=== PATIENT | male | born 1990 | race Caucasian/White ===

== ENCOUNTER 2017-03-04 17:13 | Emergency (ER) | payer BC, OTHER ==
[2017-03-04] MEDS ORDERED: NS 1,000 ML IV ONE (18:54)
--- NOTE | 2017-03-04 18:58 | EDPHY ---
H & P Smoking Status: Current some day smoker Time Seen by Provider: 03/04/17 18:29 HPI/ROS: CHIEF COMPLAINT: Syncope, head injury HISTORY OF PRESENT ILLNESS: 27-year-old male presents to the emergency department by private vehicle after having a syncopal episode yesterday. The patient states that he has had cold symptoms including diffuse myalgias, cough, nausea vomiting over last 1 week. He has had coworkers that of also tested positive for influenza. He does not get flu shots. He states yesterday he was in the shower and was feeling lightheaded and dizzy and had a syncopal episode. Woke up on the ground. He does have a history of a previous traumatic brain injury. He states today his headache was getting worse any feels nauseous and "out of it ". Denies neck or back pain. Denies chest pain or difficulty breathing. Denies abdominal pain. Denies injury to upper or lower extremities. REVIEW OF SYSTEMS: Constitutional: Subjective fevers, chills Eyes: No double or blurry vision. ENT: No sore throat. Respiratory: Cough. No shortness of breath. Cardiac: No chest pain. Gastrointestinal: No abdominal pain, vomiting or diarrhea. Genitourinary: No dysuria. Musculoskeletal: No neck or back pain. Skin: No rashes. Neurological: headache. (Eladia Alexander) Past Medical/Surgical History: Traumatic brain injury (Eladia Alexander) Social History: Single, works in marijuana dispensary (Eladia Alexander) Physical Exam: General Appearance: Alert, no distress. Mentating normally and answering questions appropriately. No physical signs of trauma to his head. Eyes: Pupils equal and round. Extraocular motions are all intact. ENT: Mouth: Mucous membranes moist. No hemotympanum. No dental injury or malocclusion. No posterior pharyngeal injection noted. Respiratory: No wheezing, rhonchi, or rales, lungs are clear to auscultation. Cardiovascular: Regular rate and rhythm. Gastrointestinal: Abdomen is soft and nontender, no masses, no rebound or guarding, bowel sounds normal. Neurological: Alert and oriented x 3, cranial nerves II through XII grossly intact Skin: Warm and dry, no rashes. Musculoskeletal: Nontender to palpate along the cervical, thoracic or lumbar spine. Neck is supple. Extremities: Full range of motion and no peripheral edema. Psychiatric: Patient is oriented X 3, there is no agitation. (Eladia Alexander) Constitutional: Initial Vital Signs Temperature (C) 37.2 C 03/04/17 17:31 Heart Rate 100 03/04/17 17:31 Respiratory Rate 17 03/04/17 17:31 Blood Pressure 112/70 03/04/17 17:31 O2 Sat (%) 97 03/04/17 17:31 O2 Delivery Mode Room Air Allergies/Adverse Reactions: amoxicillin Allergy (Verified 03/04/17 17:29) Penicillins Allergy (Verified 03/04/17 17:29) Home Medications: Medication Instructions Recorded Elsa Allergy 03/04/17 Medical Decision Making - Diagnostics Imaging: Discussed imaging studies w/ banquet server on call Radiologist - Diagnostics EKG Interpretation: 12-lead EKG interpreted by me; official reading is in trace master. My interpretation is sinus rhythm, inferior Q-waves noted, normal intervals. (Antony Chavis) Imaging Results: Imaging Impressions Head CT 03/04/17 18:54 Impression: 1. Negative. No acute intracranial hemorrhage or fracture. 2. Maxillary and ethmoid sinus disease. Findings discussed with Emergency Department physician, Eladia Alexander PA-C on March 04, 2017 at 1928 hours. ED Course/Re-evaluation: 27-year-old male presents to the emergency department with flu-like symptoms over last 1 week. Patient has been around coworkers with positive influenza. The patient does not receive flu shots. The patient however has been sick for over 1 week. I discussed the rationale for not performing influenza testing or treatment. The patient is outside of the free 8 hr window. He does not have a history of asthma and he is immunocompetent. Patient does have a history of traumatic brain injury and has history of positive loss of consciousness after head injury yesterday. I discussed the pros and cons of radiation exposure associated with CT scan of the brain and the patient requests CT scan. CT imaging was normal. Laboratory studies were unremarkable. EKG reveals normal sinus rhythm. (Eladia Alexander) Differential Diagnosis: Head injury including but not limited to concussion, skull fracture, intraparenchymal contusion, subarachnoid, subdural and epidural hematoma. Cough including but not limited to influenza, viral upper respiratory infection , bronchitis, pneumonia (Eladia Alexander) - Data Points Laboratory Results: Laboratory Results 03/04/17 19:00 03/04/17 19:00 03/04/17 03/04/17 19:00 19:00 WBC 10.87 10^3/uL H 10^3/uL (3.80-9.50) RBC 5.93 10^6/uL 10^6/uL (4.40-6.38) Hgb 17.2 g/dL g/dL (13.7-17.5) Hct 49.7 % % (40.0-51.0) MCV 83.8 fL fL (81.5-99.8) MCH 29.0 pg pg (27.9-34.1) MCHC 34.6 g/dL g/dL (32.4-36.7) RDW 12.7 % % (11.5-15.2) Plt Count 226 10^3/uL 10^3/uL (150-400) MPV 8.8 fL fL (8.7-11.7) Neut % (Auto) 70.7 % % (39.3-74.2) Lymph % (Auto) 17.1 % % (15.0-45.0) Glades % (Auto) 10.8 % % (4.5-13.0) Eos % (Auto) 0.5 % L % (0.6-7.6) Baso % (Auto) 0.6 % % (0.3-1.7) Nucleat RBC Rel Count 0.0 % % (0.0-0.2) Absolute Neuts (auto) 7.69 10^3/uL H 10^3/uL (1.70-6.50) Absolute Lymphs (auto) 1.86 10^3/uL 10^3/uL (1.00-3.00) Absolute Monos (auto) 1.17 10^3/uL H 10^3/uL (0.30-0.80) Absolute Eos (auto) 0.05 10^3/uL 10^3/uL (0.03-0.40) Absolute Basos (auto) 0.07 10^3/uL 10^3/uL (0.02-0.10) Absolute Nucleated RBC 0.00 10^3/uL 10^3/uL (0-0.01) Immature Gran % 0.3 % % (0.0-1.1) Immature Gran # 0.03 10^3/uL 10^3/uL (0.00-0.10) Sodium 140 mEq/L mEq/L (135-145) Potassium 4.6 mEq/L mEq/L (3.5-5.2) Chloride 105 mEq/L mEq/L (97-110) Carbon Dioxide 25 mEq/l mEq/l (22-31) Anion Gap 10 mEq/L mEq/L (8-16) BUN 6 mg/dL L mg/dL (7-23) Creatinine 0.9 mg/dL mg/dL (0.7-1.3) Estimated GFR > 60 Glucose 87 mg/dL mg/dL (70-100) Calcium 9.0 mg/dL mg/dL (8.5-10.4) Medications Given: Discontinued Medications Acetaminophen (Tylenol) 1,000 mg PO EDNOW ONE Stop: 03/04/17 19:17 Last Admin: 03/04/17 19:18 Dose: 1,000 mg Sodium Chloride (Ns) 1,000 mls @ 0 mls/hr IV ONCE ONE PRN Reason: Wide Open Stop: 03/04/17 18:55 Last Admin: 03/04/17 19:01 Dose: 1,000 mls Ibuprofen (Motrin) 600 mg PO EDNOW ONE Stop: 03/04/17 19:17 Last Admin: 03/04/17 19:18 Dose: 600 mg Departure - Departure Disposition: Home, Routine, Self-Care Clinical Impression: Influenza Head injury Qualifiers: Encounter type: initial encounter Qualified Code(s): S09.90XA - Unspecified injury of head, initial encounter Syncope Qualifiers: Syncope type: unspecified Qualified Code(s): R55 - Syncope and collapse Condition: Good Instructions: Syncope (ED), Influenza (ED), Head Injury (ED) Additional Instructions: Clinically you likely have influenza. You should treat this symptomatically with ibuprofen and Tylenol. You should not smoke marijuana or do any other mind -altering drugs until your headache and symptoms have cleared and hit has been at least 1 week. Avoid any activity that might put you at risk for another head injury for at least 1 week. Referrals: Namrata Busch MD [Medical Doctor] - 2-3 days, if not improved (Primary care provider sales operations coordinator)
[2017-03-04 19:09] LABS: PLATELET COUNT 226 10^3/uL (150-400)
[2017-03-04] MEDS ORDERED: ACETAMINOPHEN 500 MG TAB ONE (19:15)
[2017-03-04] MEDS ORDERED: IBUPROFEN 600 MG TAB PO ONE ×2 (19:15→19:16)
[2017-03-04] MEDS ORDERED: ACETAMINOPHEN 500 MG TAB PO ONE (19:16)
[2017-03-04 19:19] VITALS: BP 127/78; PULSE 93; RESP 15; O2SAT 96
--- NOTE | 2017-03-04 19:25 | CPEKG ---
Heart Rate: 86 RR Interval: 698 P-R Interval: 140 QRSD Interval: 82 QT Interval: 344 QTC Interval: 412 P Grawn: 58 QRS Grawn: 86 T Wave Grawn: 32 EKG Severity - BORDERLINE ECG - EKG Impression: SINUS RHYTHM EKG Impression: BORDERLINE Q WAVES IN INFERIOR LEADS EKG Impression: INFERIOR Q WAVES, PROBABLY NORMAL VARIATION Electronically Signed By: Antony Chavis 04-Mar-2017 20:03:54
[2017-03-04 20:11] VITALS: TEMP 98.4
== END 2017-03-04 20:10 | disposition home or self-care (01) ==
DX: S09.90XA Unspecified injury of head, initial encounter (principal); R55 Syncope and collapse; J11.1 Influenza due to unidentified influenza virus with other respiratory manifestations; F17.200 Nicotine dependence, unspecified, uncomplicated; W19.XXXA Unspecified fall, initial encounter; Y93.E1 Activity, personal bathing and showering